=== PATIENT | female | born 1960 | race Caucasian/White ===

== ENCOUNTER 2018-04-22 09:37 | Inpatient (IN) | payer OTHER ==
[~2018-04-22] VITALS: Ht 165.1 cm; Wt 83.9 kg
[~2018-04-22 09:37] MED LIST: APAP650 PO; BRAIN MIGHT-DH1 EACH PO; COREG6.25 MG PO; COZAAR 50 MG TA50 M2 PO; ESTROVEN ENERG1 EACH PO; HYDROCHLOROTH12.5 M1 PO; PROBIOTIC1 EAC1 PO; PROZAC20 MG PO; VITAMIN D3400 UNIT PO
[2018-04-22 13:00] VITALS: BP 135/83
--- NOTE | 2018-04-22 15:30 | EKG ---
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
--- NOTE | 2018-04-22 18:33 | NUR ---
PATIENT CAME TO THE FLOOR FROM THE OR VIA BED IN STABLE CONDITION. ROOM ORIENTATION AND ADMISSION ASSESSMENT DONE. QUESTIONS ANSWERED FOR PATIENT AND FAMILY. ORAL PAIN MEDICATIONS GIVEN. CONTINOUS PULSE OXIMETER IS IN PLACE. CALL LIGHT IS IN REACH FAMILY IS AT BEDSIDE. WILL CONTINUE TO MONITOR.
[2018-04-22 18:35] VITALS: BP 156/77
[2018-04-22 21:30] VITALS: BP 115/65
[2018-04-23] VITALS (7 sets, daily range): BP systolic 113–125; BP diastolic 62–68
[2018-04-23 04:44] LABS: HEMATOCRIT 36.6 % (37.0-47.0); HEMOGLOBIN 12.7 gm/dL (12.0-15.0)
--- NOTE | 2018-04-23 05:53 | NUR ---
PATIENT SLEPT MOST OF THE NIGHT. IV FLUIDS CONTINUE TO INFUSE AT 75 ML/HR. PATIENT WAS GIVEN PAIN MEDICINE TWICE THIS SHIFT. PATIENT WAS UP WITH ASSIST OF 1 WITH WALKER AND GAITBELT TO BEDSIDE COMMODE ONCE TO VOID. PATIENT REMAINS ON 2L PER NASAL CANNULA WITH CONTINUOUS PULSE OX IN PLACE SATTING 94-96%. WILL CONTINUE TO MONITOR.
--- NOTE | 2018-04-23 09:38 | NUR ---
RECIEVED O.T. EVAL AND TX ORDER. WILL DEFER TO P.T. AND NURSING. PLEASE ORDER FURTHER O.T. ORDERS IF NEEDED.
[2018-04-23] MEDS ORDERED: ELIQUIS5 MG PO (11:08)
[2018-04-23] MEDS ORDERED: OXYCODONE HCL 55 MG PO (11:55)
--- NOTE | 2018-04-23 14:20 | NUR ---
SPOKE WITH PT. SHE WAS ALERT AND ORIENTED. SHE IS AWARE SHE WILL GO HOME TODAY. SHE WANTS TO DO OUTPT.PHYSICAL THERAPY AT [facility]. CALLED [phone] AND SPOKE WITH ALEXANDER. FAXED ORDERS TO HER AT [phone]. THEY WILL CALL HER TO SET UP APPTS. CM CALLED IN ELIQUIS PRESCRIPTION WRITTEN TO [facility] [phone]. COPAY IS $35. INFORMED HER. PT.HAS A FRONT WHEEL WALKER FROM HOME THAT IS HERE WITH HER. HER WILL BE WITH HER TO ASSIST HER AT DISCHARGE. 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 LOLI CUELLAR AWARE OF ALL OF THE ABOVE.
--- NOTE | 2018-04-23 17:33 | NUR ---
PATIENT HAS BEEN ALERT AND ORIENTED TODAY VERY PLEASANT. VITAL SIGNS STABLE ON ROOM AIR. PAIN IS WELL CONTROLLED WITH ORAL PAIN MEDICATIONS. PATIENT HAS TOLERATED PHYSICAL THERAPY VERY WELL AND IS ABLE TO GO HOME. DISCHARGE INSTRUCTIONS GIVEN, PAIN MEDICATION PRESCRIPTION GIVEN AND BLLOD THINNER CALLED INTO PHARMACY. QUESTIONS ANSWERED FOR PATIENT AND SPOUSE. PATIENT LEFT VIA WHEELCHAIR TO HOME WITH .
--- NOTE | 2018-04-24 21:12 | PATH ---
[address] [address] PATHOLOGY RPT PROCEDURE Name: MARCI SWANSON Room: [address] IN M.R.#: [id number] Admission: 04/22/18 Date of : 64 Discharge: 04/23/18 Report #: [id number] Path Case #: [id number] [facility] Accession Number: [id number] . 01 Material submitted: . RIGHT KNEE BONE AND TISSUE . 01 Clinical history: . Right knee DJD, severe DJD. . 02 Diagnosis: Right knee bone and tissue: - Benign meniscus and synovium, and benign bone and cartilage with degenerative changes. (YOUSIF:mgr; 04/24/18) QRQ/04/24/2018 . 02 Electronically signed: . Haider Foley MD, Pathologist NPI- [id number] . 01 Gross description: . Received in formalin labeled "Marci Swanson, right knee bone and tissue," are multiple segments of bone, including tibial plateau, measuring 11.5 x 10.3 x 2.2 cm in aggregate dimensions. Soft tissue and meniscus are present. Upon extensive sectioning, eburnation of the articular surfaces is not grossly evident. Bus Monitor bone and soft tissue are submitted in cassette A1, following decalcification. (DAC; 04/23/2018) XDC/XDC . 02 Pathologist provided ICD-10: M17.11 . 02 CPT . 752929, [id number] Performed at: [address], [place], [place] [id number] MD Harley Jimenez MD Phone: [phone] Performed at: 02 [facility] [address], [place], [place] [id number] MD Haider Foley MD Phone: [phone]
--- NOTE | 2018-05-13 11:41 | OP ---
[address] [address] OPERATIVE REPORT Name: SUSAN MICHEL Room: [address]#: [id number] Admission: 04/22/18 Attend Phys: Marciano Knowles Discharge: 04/23/18 Date of : 64 Report #: [id number] THIS REPORT FOR: //name// CC: FAM unknown RONEN Cade DICTATED BY: Matthew Kee DO DATE OF SERVICE: 04/22/2018 PREOPERATIVE DIAGNOSIS: POSTOPERATIVE DIAGNOSIS: Right knee degenerative joint disease. PROCEDURE PERFORMED: Right total knee arthroplasty. SURGEON: Damien Victor DO. UNDER SHERIFF: Matthew Kee DO. SECOND UNDER SHERIFF: José Miguel Galaviz DO ANESTHESIA: General and local. ESTIMATED BLOOD LOSS: 150 mL SPECIMENS: None. COMPLICATIONS: None. ANTIBIOTICS: Ancef 2 g IV preop. ORTHOPEDIC IMPLANTS: 1. Biomet Vanguard CR femur, 60 mm. 2. Biomet Vanguard tibial plate, fixed cruciate, 67 mm. 3. Biomet Vanguard series - A asymmetrical patella, 28 mm. 4. Biomet Vanguard tibial bearing 12 mm. INDICATIONS FOR PROCEDURE: The patient is a pleasant 57-year-old female who has had ongoing right knee pain. She had x-rays demonstrating advancing degenerative changes. She had failed conservative measures in the form of steroid injections, activity modifications, attempted weight loss, oral anti-inflammatories. The pain was causing her difficulty with ambulation, difficult to carry out activities of daily living [place] [address] OPERATIVE REPORT Name: SUSAN MICHEL Room: [address] IN .Candi.#: [id number] Admission: 04/22/18 Attend Phys: Marciano Knowles Discharge: 04/23/18 Date of : 64 Report #: [id number]. It was recommended that she be a candidate for right total knee arthroplasty at this point. All risks, benefits, complications, indications, alternatives were reviewed with the patient. They wished to proceed. DESCRIPTION OF PROCEDURE: The patient was brought to the operative suite where he was placed supine on a well-padded table, given the benefit of general anesthesia at that time. The right lower extremity was sterilely prepped and draped in standard fashion. Timeout was taken to ensure correct patient, procedure, operative site, everybody in the room was in agreeance. At that time, a 10 blade scalpel was used to make a skin incision through skin and subcutaneous tissue. Medial and lateral subcutaneous flaps were developed. A second 10 blade was used to perform a medial parapatellar arthrotomy. Once this was done, the patella was everted. Anterior horns and medial lateral menisci were excised as well as excess Hoffa fat pad. Drill was used to find the intramedullary canal of femur. Intramedullary distal femoral cutting guide was set at 5 degrees valgus, 11 mm resection. Once this was taken, we then used extramedullary guide, made an 8 mm resection off the high guide with the guide positioned in line with the medial third of the tibial tubercle, tibial crest and middle of the ankle. Once this resection was made, we had adequate spacing in full extension with a 10 block spacer with equal medial lateral balancing. We then sized our femur with the AP sizer to a size 60, made anterior and posterior cuts followed by anterior, posterior chamfers with the 4-in-1 cutting block. Once this was done, the ACL was removed with Bovie electrocautery as well as the medial and lateral menisci. At this point in time, we sized her tibia to a size 67 trial with a size 60 femur. We trialed with a 12 mm bearing surface and had a full range of motion, 0-130 degrees. The knee was ligamentously stable with valgus varus stress, had excellent mid flexion stability and a stable arc of motion. We were quite pleased with the results at that time. We then denervated the patella, resurfaced it with a Marsha reamer to approximately 14 mm of thickness. We sized it to a size 28, drilled 3 peg holes, had excellent patellar tracking with the trial poly. At that time, holes were drilled and then of the femur. The proximal tibia was prepared with the drill and punch. All trial implants were removed. The bone ends were pulsatile lavaged with normal saline. Cement was mixed at the backtable. We then carried cement first at the tibia followed by the femur and lastly the patella plus final size 12 mm anterior stabilized bearing. This was placed with the locking crossbar. Once this was done, we had excellent stable arc of motion 0-130 degrees with excellent stability through mid flexion. We then irrigated the knee with pulsatile lavage once more, put a gram of vancomycin powder and brought the knee to 90 degrees. We closed at 90 degrees as the cement hardened using #1 Vicryl in [id number] fashion and a #1 Stratafix. We then irrigated the outside of the capsule. Following that, we used 2-0 Monocryl subcutaneously followed by running 3-0 [place] [address] OPERATIVE REPORT Name: SUSAN MICHEL Room: [address]#: [id number] Admission: 04/22/18 Attend Phys: Marciano Knowles Discharge: 04/23/18 Date of : 64 Report #: [id number] Stratafix and Dermabond glue. Mepilex dressing was applied and PORFIRIO hose. The patient was awoken from anesthesia and brought to PACU in stable condition. <ELECTRONICALLY SIGNED> By: Damien Victor DO 05/13/18 1141 1728 1841Robertwyla Victor DO /nt
== END 2018-04-23 17:43 | disposition home or self-care (01) | DRG 470 ==
LOC: M.PRE 09:37 → M.3W 12:37 → M.TBA 12:37 → M.PRE 13:11 → M.3W 17:58
PROVIDERS: Orthopaedic Surgery; ADMIT Internal Medicine
PROC: 0SRC0J9 Replacement of Right Knee Joint with Synthetic Substitute, Cemented, Open Approach (ICD-10-PCS; principal; 2018-04-22)
DX: M17.0 Bilateral primary osteoarthritis of knee (principal); E78.5 Hyperlipidemia, unspecified; F32.9 Major depressive disorder, single episode, unspecified; I10 Essential (primary) hypertension; Z96.652 Presence of left artificial knee joint; Z79.899 Other long term (current) drug therapy; Z82.49 Family history of ischemic heart disease and other diseases of the circulatory system; Z80.9 Family history of malignant neoplasm, unspecified